=== PATIENT | male | born 1980 | race American Indian/Alaskan Native ===

== ENCOUNTER 2017-05-12 08:13 | Emergency (ER) | payer SELFPAY ==
[2017-05-12 08:20] VITALS: BP 127/84
[2017-05-12] MEDS ORDERED: XYLOCAINE 1% MPF 5 mL INFILTRATI ONE (09:21)
[2017-05-12] MEDS ORDERED: ROCEPHIN IM ONE (09:21)
[2017-05-12] MEDS ORDERED: ZITHROMAX PO ONE (09:21)
--- NOTE | 2017-05-12 09:24 | Emergency Department Report ---
ED Male HPI - General Chief complaint: Urogenital-Male Stated complaint: DIFFICULTY URINATING Source: patient Mode of arrival: Ambulatory Limitations: No Limitations - History of Present Illness MD Complaint: penile discharge, dysuria -: days(s) (5) Severity scale (0 -10): 0 Quality: burning Consistency: intermittent Improves with: none Worsens with: urination discharge (penile) - Related Data Sexually active: Yes (with the women unprotected) Previous Rx's Medication Instructions Recorded Last Taken Type Doxycycline [Vibramycin CAP] 100 mg PO Q12HR 10 Days #20 capsule 05/12/17 Unknown Rx Allergies Allergy/AdvReac Type Severity Reaction Status Date / Time No Known Allergies Allergy Verified 05/12/17 08:17 ED Review of Systems ROS: Stated complaint: DIFFICULTY URINATING Other details as noted in HPI Constitutional: denies: chills, fever Eyes: denies: eye pain, eye discharge, vision change ENT: denies: ear pain, throat pain Respiratory: denies: cough, shortness of breath, wheezing Cardiovascular: denies: chest pain, palpitations Endocrine: no symptoms reported Gastrointestinal: denies: abdominal pain, nausea, diarrhea Genitourinary: dysuria Musculoskeletal: denies: back pain, joint swelling, arthralgia Skin: denies: rash, lesions Neurological: denies: headache, weakness, paresthesias Psychiatric: denies: anxiety, depression ED Past Medical Hx - Past Medical History Previous Medical History?: No Hx Psychiatric Treatment: Yes - Surgical History Additional Surgical History: I AND D - Social History Smoking Status: Current Every Day Smoker Substance Use Type: None - Medications Home Medications: Home Medications Medication Instructions Recorded Confirmed Last Taken Type Doxycycline [Vibramycin CAP] 100 mg PO Q12HR 10 Days #20 capsule 05/12/17 Unknown Rx ED Physical Exam - General Limitations: No Limitations General appearance: alert, in no apparent distress - Head Head exam: Present: atraumatic, normocephalic - Eye Eye exam: Present: normal appearance - exam: Present: normal inspection, urethral discharge External exam: Present: normal external exam - Extremities Exam Extremities exam: Present: normal inspection - Back Exam Back exam: Present: normal inspection - Neurological Exam Neurological exam: Present: alert, oriented X3 - Psychiatric Psychiatric exam: Present: normal affect, normal mood - Skin Skin exam: Present: warm, dry, intact, normal color. Absent: rash ED Course Vital Signs 12/16/17 08:17 Temperature 97.2 F L Pulse Rate 72 Respiratory 18 Rate Blood Pressure 127/84 O2 Sat by Pulse 99 Oximetry ED Medical Decision Making - Medical Decision Making Patient has been evaluated by this provider in fast track. Discussed with patient we will treat him for gonorrhea and chlamydia which consisted of Rocephin 250 mg IM as well as a azithromycin 1000 mg now. Discussed with patient he needs to inform his partner that he was treated and that they need to be treated before he has intercourse again. Discussed with patient he can come up to the hospital to picker feeder his results in 3-5 days. Patient verbalized understanding Critical care attestation.: If time is entered above; I have spent that time in minutes in the direct care of this critically ill patient, excluding procedure time. ED Disposition Clinical Impression: Abnormal penile discharge, Concern about STD in male without diagnosis Disposition: DC-01 TO HOME OR SELFCARE Is pt being admited?: No Does the pt Need Aspirin: No Condition: Stable Instructions: Sexually Transmitted Diseases (ED), Safe Sex (ED) Additional Instructions: Complete antibiotics as prescribed. Informed your partner that she has possibly been exposed and treated. Recommend not to have sexual relationships with that particular and to they have been treated. If further concerns please follow-up with the health department. Prescriptions: Doxycycline [Vibramycin CAP] 100 mg PO Q12HR 10 Days #20 capsule Referrals: PRIMARY CARE, [Primary Care Provider] - 3-5 Days
[2017-05-12 10:06] LABS: Bilirubin,Urine NEG (Negative); Blood,Urine NEG (Negative); Ketones,Urine TR mg/dL (Negative); Leukocyte Esterase,Urine SM (Negative); Mucus,Urine 3+ /HPF; Nitrite,Urine NEG (Negative)
== END 2017-05-12 09:53 | disposition home or self-care (01) ==
LOC: ED 08:13
DX: R36.9 Urethral discharge, unspecified (principal); R30.0 Dysuria; F17.200 Nicotine dependence, unspecified, uncomplicated
CPT/HCPCS: 81001; 87086; 87591; 96372; 99283; J0696

== ENCOUNTER 2018-12-23 02:03 | Emergency (ER) | payer SELFPAY ==
[2018-12-23 02:57] LABS: Basophils % (Auto) 0.5 % (0.0-1.8); Eosinophils # (Auto) 0.1 K/mm3 (0.0-0.4); Hematocrit 37.1 % (35.5-45.6); Hemoglobin 12.9 gm/dl (11.8-15.2); Lymphocytes # (Auto) 2.2 K/mm3 (1.2-5.4); Lymphocytes % (Auto) 36.1 % (13.4-35.0); Mean Corpuscular HGB Conc 35 % (32-34); Mean Corpuscular Volume 91 fl (84-94); Monocytes # (Auto) 0.6 K/mm3 (0.0-0.8); Monocytes % (Auto) 9.9 % (0.0-7.3); Platelet Count 222 K/mm3 (140-440); Red Blood Count 4.07 M/mm3 (3.65-5.03)
[2018-12-23 03:18] LABS: BUN/Creatinine Ratio 15; Blood Urea Nitrogen 20 mg/dL (9-20); Calcium 9.4 mg/dL (8.4-10.2); Hemolysis Index 5
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
[2018-12-23 08:16] LABS: Bilirubin,Urine NEG (Negative); Blood,Urine NEG (Negative); Calcium Oxalate Crystals,Urine FEW; Color,Urine Yellow (Yellow); Mucus,Urine 3+ /HPF; Protein,Urine <15 mg/dL mg/dL (Negative)
[2018-12-23 08:29] LABS: Amphetamine Screen,Urine PRESUMPTIVE NEGATIVE; Benzodiazepines Screen,Urine PRESUMPTIVE NEGATIVE; Methadone Screen,Urine PRESUMPTIVE NEGATIVE; Opiate Screen,Urine PRESUMPTIVE NEGATIVE
[2018-12-23 08:42] LABS: Cannabinoid Screen,Urine PRESUMPTIVE POSITIVE; Cocaine Screen,Urine PRESUMPTIVE POSITIVE
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
[2018-12-23] MEDS: REMERON PO SCH (22:06)
--- NOTE | 2018-12-24 09:26 | Progress Note ---
Subjective - Reason for Consult Consult date: 12/24/18 Reason for consult: Psychiatry Follow-up - Chief Complaint Chief complaint: "I feel better" 38 y.o. AA male who presented to the ER for SI's. Today the patient was calm and cooperative during the assessment. He stated that he feel better and have done some reflecting on his life. He stated that he will make better decisions with his life once discharged. He denies SI/HI's and AVH's. He denies any side effects of his medication.The patient stated that he is homeless. Mental Status Exam - Vital signs Last Vital Signs Temp 97.9 F 12/24/18 07:00 Pulse 70 12/24/18 07:00 Resp 18 12/24/18 07:00 BP 104/75 12/24/18 07:00 Pulse Ox 98 12/24/18 07:00 - Exam Narrative exam: MSE: Appearance: calm, cooperative Behavior: regular eye contact Speech: regular rate and tone l Mood: "okay" Affect: congruent to mood Thought Process: circumstantial Thought Content: denies SI/HI's and AVH's Motor Activity: sitting up in bed Cognition: A/O x3 Insight: variable to fair Judgment: variable to fair Assessment and Plan Impression: MDD. Cannabis Use OO. Substance Use DO (cocaine). Today the was calm and cooperative during the assessment. DDx: Bipolar DO, Substance Induced Mood DO Recommendation/Plan: Reevaluate the patient's 1013 in 24 hours. Continue Remeron 15 mg PO HS for depression. Discussed possible suicidality/medication induced domi with the patient, he verbalized understanding.Discussed the importance to abstain from recreational drug use with the patient, he verbalized understanding. Case Mgmt involvement, the patient will need assistance with placement when discjarged. Dispo: If the patient's 1013 is rescinded in 24 hours, he can follow up with [facility] for outpatient psy/rehab services. Will staff with Dr Wilner Gordillo.
[2018-12-24] MEDS: REMERON PO SCH (22:43)
--- NOTE | 2018-12-25 18:12 | Progress Note ---
Subjective - Reason for Consult Consult date: 12/25/18 Reason for consult: Psychiatric follow-up Evaluation - Chief Complaint Chief complaint: "I feel good." Patient is a 38 y.o. AA male who presented to the emergency room for suicidal ideations. Today the patient is calm and cooperative during the assessment. he reports " I'm not having any suicidal thoughts. I've had time to reflect." Per patient spending time with family and watching sports are his coping skills. Appears somewhat guarded. He denies SI/HI's, AVH's, and delusions. Reports medication compliance. He denies any side effects of his medication.The patient stated that he is homeless and that he would have more access to places in the AM. Mental Status Exam - Vital signs Last Vital Signs Temp 98.5 F 12/25/18 15:32 Pulse 64 12/25/18 15:32 Resp 15 12/25/18 16:20 BP 108/80 12/25/18 15:32 Pulse Ox 100 12/25/18 16:20 - Exam Narrative exam: Mental Status Exam: Appearance: calm, cooperative Behavior: regular eye contact Speech: regular rate and tone l Mood: "I feel good" Affect: congruent to mood Thought Process: circumstantial Thought Content: denies SI/HI's, AVH's, and delusions Motor Activity: sitting up in bed Cognition: A/O x 3 Insight: variable to fair Judgment: variable to fair Assessment and Plan Impression: MDD. Cannabis Use OO. Substance Use DO (cocaine). Today the was calm and cooperative during the assessment. He denies SI/HI's, A/VH's, and delus ions. He is in no imminent danger to self/others. Discussed medications/coping skills. Patient verbalizes understanding. DDx: Bipolar DO, Substance Induced Mood DO Recommendation/Plan: 1. Reevaluate the patient's 1013 in 24 hours. Will rescind 1013. 2. Continue Remeron 15 mg PO HS for depression. Discussed possible suicidality/medication induced domi with the patient, he verbalized understanding.Discussed the importance to abstain from recreational drug use with the patient, he verbalized understanding. Case Mgmt involvement, the patient will need assistance with placement when discharged. Disposition: If the patient's 1013 is rescinded in 24 hours, he can follow up with [facility] for outpatient psy/rehab services. Will staff with Dr. Wilner Gordillo.
[2018-12-25] MEDS: REMERON PO SCH (21:43)
[2018-12-26 07:55] VITALS: BP 138/86
--- NOTE | 2018-12-26 08:06 | Progress Note ---
Subjective - Reason for Consult Consult date: 12/26/18 Reason for consult: Psychiatry Follow-up - Chief Complaint Chief complaint: "I will need assistance with somewhere to stay"" 38 y.o. AA male who presented to the emergency room for suicidal ideations. Today the patient was calm and cooperative during the assessment. He stated that he will follow up with outpatient psy services once discharged. He is adamant that he will make better decision reference" life choices." He denies SI/HI's and AVH's. He denies any side effects of his medication. The patient stated that he is homeless. Mental Status Exam - Vital signs Last Vital Signs Temp 98.2 F 12/26/18 07:54 Pulse 58 L 12/26/18 07:54 Resp 18 12/26/18 07:54 BP 138/86 12/26/18 07:54 Pulse Ox 100 12/26/18 07:54 - Exam Narrative exam: MSE: Appearance: calm, cooperative Behavior: regular eye contact Speech: regular rate and tone l Mood: "okay" Affect: congruent to mood Thought Process: logical Thought Content: denies SI/HI's and AVH's Motor Activity: sitting up in bed Cognition: A/O x3 Insight: appropriate Judgment: appropriate Assessment and Plan Impression: MDD. Cannabis Use OO. Substance Use DO (cocaine). Today the was calm and cooperative during the assessment. The patient is no threat to self. DDx: Bipolar DO, Substance Induced Mood DO Recommendation/Plan: Rescind 1013. Continue Remeron 15 mg PO HS for depression. Discussed possible suicidality/medication induced domi with the patient, he verbalized understanding. Discussed the importance to abstain from recreational drug use with the patient, he verbalized understanding. Case Mgmt involvement, the patient will need assistance with placement when discharged. Dispo: The patient can follow up with [facility] for outpatient psy servi latrell. Will staff with Dr Wilner Gordillo.
== END 2018-12-26 09:57 | disposition home or self-care (01) ==
LOC: EEVIPCON 02:03 → ED 02:03
DX: F14.10 Cocaine abuse, uncomplicated (principal)
CPT/HCPCS: 36415; 80048; 80307; 80320; 81001; 85025; G0480